=== PATIENT | male | born 1935 | race Caucasian/White ===

== ENCOUNTER 2016-10-04 05:39 | Inpatient (IN) | payer OTHER ==
[2016-10-04] MEDS ORDERED: ACETAMINOPHEN 325 MG TAB PO ONE (06:00)
[2016-10-04] MEDS ORDERED: CHLORHEXIDINE GLUC HIBICLENS 118 ML BTL TP ONE (06:00)
[2016-10-04] MEDS ORDERED: CEFAZOLIN 2 GM/DEXTR 100 ML IV ONE (06:00)
[2016-10-04] MEDS ORDERED: DEXAMETHASONE 4 MG/ML VIAL IVP ONE (06:00)
[2016-10-04] MEDS ORDERED: FAMOTIDINE 20 MG TAB PO ONE (06:00)
[2016-10-04] MEDS ORDERED: ROPI/epiNEPH/KETOROLAC/morphINE JOINT COCKTAIL IU ONE (06:00)
[2016-10-04] MEDS ORDERED: LIDOCAINE 1% 2 ML INJ ONE (06:18)
[2016-10-04] MEDS ORDERED: CALCIUM CHLORIDE 1 GM/10 ML INJ ONE (06:51)
[2016-10-04] MEDS ORDERED: THROMBIN (BOVINE) 5,000 UNIT VIAL TP ONE (06:51)
[2016-10-04] MEDS ORDERED: POLYMYXIN B SULFATE 500,000 UNIT/10 ML SYR IRR ONE (06:52)
[2016-10-04] MEDS ORDERED: BACITRACIN 50,000 UNITS/10 ML SYR IRR ONE (06:52)
[2016-10-04] MEDS ORDERED: PROPOFOL 200 MG/20 ML VIAL ONE ×4 (07:00→09:02)
[2016-10-04] MEDS ORDERED: fentaNYL 100 MCG/2 ML INJ ONE (07:00)
[2016-10-04] MEDS ORDERED: LIDOCAINE 2% 5 ML SDV ONE (07:03)
[2016-10-04] MEDS ORDERED: MIDAZOLAM 2 MG/2 ML VIAL ONE (07:11)
[2016-10-04] MEDS ORDERED: BUPIVACAINE 0.5% 30 ML SDV ONE (07:19)
[2016-10-04] MEDS ORDERED: BUPIVACAINE/EPI 0.5% 30 ML SDV ONE (07:49)
[2016-10-04] MEDS ORDERED: PHARMACY PAIN CONSULT 1 EA MISC PRN (09:26)
[2016-10-04] MEDS ORDERED: DIPHENOXYLATE/ATROPINE LOMOTIL 1 TAB PO PRN (09:26)
[2016-10-04] MEDS ORDERED: ONDANSETRON DISINTEGRATING 4 MG TAB PO PRN (09:26)
[2016-10-04] MEDS ORDERED: TAPENTADOL HCL 50 MG TAB PO PRN (09:26)
[2016-10-04] MEDS ORDERED: oxyCODONE IR 5 MG TAB PO PRN (09:26)
[2016-10-04] MEDS ORDERED: ONDANSETRON 4 MG/2 ML VIAL IVP PRN (09:26)
[2016-10-04] MEDS ORDERED: PROMETHAZINE HCL 25 MG SUPPR PR PRN (09:26)
[2016-10-04] MEDS ORDERED: MAGNESIUM HYDROXIDE 30 ML UDCUP PO PRN (09:26)
[2016-10-04] MEDS ORDERED: BISACODYL 10 MG SUPP PR PRN (09:26)
[2016-10-04] MEDS ORDERED: LACTULOSE 20 GM/30 ML UDCUP PO PRN (09:26)
[2016-10-04] MEDS ORDERED: TEMAZEPAM 15 MG CAP PO PRN (09:26)
[2016-10-04] MEDS ORDERED: diphenhydrAMINE 25 MG CAP PO PRN (09:26)
[2016-10-04] MEDS ORDERED: METOCLOPRAMIDE 10 MG/2 ML VIAL IVP PRN (09:26)
[2016-10-04] MEDS ORDERED: CYCLOBENZAPRINE 10 MG TAB PO PRN (09:26)
[2016-10-04] MEDS ORDERED: POLYETHYLENE GLYCOL 3350 17 GM PKT PO PRN (09:26)
--- NOTE | 2016-10-04 09:29 | POSTOPPROG ---
Post Op Note Date of Operation: 10/04/16 Surgeon: Jacquie Morillo Topstitcher Lockstitch: coltrain Anesthesia: Epidural Pre-op Diagnosis: l knee oa Procedure: l tkr Inf/Abcess present in the surg proc area at time of surgery?: No Depth: Deep Incisional (Fascial) EBL: 50-100
[2016-10-04] MEDS ORDERED: LR 1,000 ML IV SCH (09:30)
[2016-10-04] MEDS ORDERED: TAPENTADOL HCL 50 MG TAB ONE (10:35)
[2016-10-04] MEDS: KETOROLAC 30 MG/1 ML SDV IVP SCH ×3 (12:06→23:51)
[2016-10-04] MEDS: ACETAMINOPHEN 325 MG TAB PO SCH ×3 (12:06→23:52)
[2016-10-04] MEDS: traMADol 50 MG TAB PO SCH ×3 (12:07→23:51)
--- NOTE | 2016-10-04 14:00 | GOP ---
[f rep st] OPERATIVE REPORT DATE OF OPERATION: 10/04/2016 SURGEON: Jacquie Morillo MD DUPLICATOR PUNCH SET UP OPERATOR: HENNY SuárezA, LSA, whose presence was medically necessary. ANESTHESIA: Spinal nerve block. PREOPERATIVE DIAGNOSIS: Left knee osteoarthritis. POSTOPERATIVE DIAGNOSIS: Left knee osteoarthritis. PROCEDURE PERFORMED: Left total knee replacement. FINDINGS: INDICATIONS: This is a 80-year-old male with a long history of left knee pain worsening with use wi th time to the point he has difficulty ambulating and doing activities of daily living. X-ray exam reveals severe osteoarthritic changes. He wishes to have surgery in order to resolve the problem. DESCRIPTION OF PROCEDURE: Patient brought to the operating room after the left side had been identi fied as correct side by the patient, nurse, and physician. Once in the operating room, he was given an epidural nerve block. He then had a tourniquet placed around the upper portion of the left thig h, and the left lower extremity sterilely prepped and draped in usual fashion using GSI solution. O nce prepped and draped, a linear incision was made on the anterior portion of the knee with sharp di ssection carried down through skin, subcutaneous layers identifying the extensor mechanism below. B leeding was controlled using electrocautery. A medial parapatellar incision was made through the ex tensor mechanism with patella brought to side but not everted. He was noted to have abundant amount of osteophytic changes with severe osteoarthritic changes noted of the lateral compartment. The AC L along with the medial and lateral meniscus and the Hoffa pad were removed from the anterior portio n of the knee. Drill hole was made 1 cm anterior to the intercondylar notch with an intramedullary guide placed within the femoral tunnel, and then cutting block was set at 5 degrees valgus and set t o remove 8 mm of bone. Once pinned into place, oscillating saw was used to remove the distal end of the femur until achieving a smooth cut. The knee was brought to maximal flexion. Cartilage was re moved from the posterior portions of the femoral condyles and a sizing guide placed on the cut surfa ce of the distal femur. A sizing guide revealed that a size 7 seemed to fit best without notching t he anterior cortex of the femur. Drill holes were made, and a size 7 four-in-one cutting block was put in place with the anterior, posterior, and chamfer cuts made. A trial femoral component was put into place. The knee was able to achieve full extension suggesting adequate bone had been removed. Once completed, the knee was brought back to maximal flexion. The femoral trial was removed, and the tibia was subluxed anteriorly. An external tibial guide was put into place at neutral varus garyson julissa onto the tibia and a mild amount of posterior slope. It was set to remove 4 mm of bone from the low side of the tibia. Oscillating saw was then used to remove the proximal portion of the tibia. After the drop edu had confirmed the appropriate angle for the cut, it was completed. Trial femora l component, trial tibial component were put into place with the trial polyethylene component noted to fit in place, and the knee was able to achieve full extension. Therefore, all the trials were re moved. The knee brought to maximal flexion. Tibia subluxed anteriorly. Multiple trials were place d on the cut surface of the tibia, and a size 6 tibial component seemed to fit best. It was placed in slight external rotation, pinned into place, and a keel punch passed through the trial into the m edullary cavity. Trials were then removed. The knee brought to full extension. The patella was th en everted. Soft tissue was removed from around the patella. It was noted to be 27 mm in thickness . Oscillating saw was used to remove the posterior portion of the bone leaving 16 mm of bone. Mult iple trials placed on the cut surface. Noted a 38 mm patella button seemed to fit best. Therefore, lug holes were drilled for a 38 mm patella. All cut surfaces of bone were then thoroughly irrigate d with an antibiotic solution with pulsatile lavage while cement was being mixed. Once cement was d oughy, it was placed on the proximal portion of the tibia with a size 6 triathlon X3 tibial componen t put into place and excess cement removed using Arma elevator. The cement was placed on the poste rior skids of the femoral component with cement placed on the distal anterior portion of the femoral component with a size 7 cruciate retaining triathlon component from [place] put into place, and exc ess cement removed using Arma elevator. Trial liner was placed in the tibial tray, and the knee br ought to full extension under pressurized cement. Cement was placed on the cut surface of the robins la, and a 38 mm triathlon X3 patella was put into place and noted to fit securely with excess cement removed using Arma elevator. Once cement had hardened, any excess cement was removed using combin ation of rongeur and osteotome. Multiple trials placed in tibial tray, and a 9 mm insert seemed to fit best. Therefore, a 9 mm polyethylene liner was placed within the tibial tray. Once locked into place, the knee was brought to slight flexion. Tourniquet was deflated at 57 minutes. Bleeding wa s controlled using electrocautery. 0 Vicryl suture was used in a [id number]-[id number] type stitch to dorcas se the extensor mechanism with plasma gel placed intra-articularly. 0 Vicryl and 2-0 Vicryl suture were used to close subcutaneous layers and a 3-0 V-Loc suture in a running subcuticular stitch was u sed to close the skin. The wound was dressed with Steri-Strips, Xeroform, 4 x 4's, and Kerlix. Leg was completely undraped in the operating room, tourniquet removed from the from the thigh, and an A ce wrap placed around the knee. Patient was then transferred onto a stretcher, and sent to recovery room in good condition. TOURNIQUET TIME: 57 minutes. /[id number]/MODL
[2016-10-04] MEDS: ceFAZolin 2 GM/DEXTROSE 100 ML IV SCH ×2 (14:16→21:59)
[2016-10-04] MEDS: SENNOSIDES/DOCUSATE SODIUM TAB PO SCH (20:32)
[2016-10-04] MEDS: LISINOPRIL 20 MG TAB PO SCH (20:32)
[2016-10-04] MEDS: FAMOTIDINE 20 MG TAB PO SCH (20:32)
[2016-10-04] MEDS: DILTIAZEM SR 90 MG CAP PO SCH (20:33)
[2016-10-04] MEDS ORDERED: ATORVASTATIN CALCIUM 40 MG TAB PO SCH (21:00)
[2016-10-05 04:57] LABS: HEMATOCRIT 34.7 % (40.0-51.0); HEMOGLOBIN 12.1 g/dL (13.7-17.5)
[2016-10-05] MEDS: KETOROLAC 30 MG/1 ML SDV IVP SCH ×2 (05:53→11:56)
[2016-10-05] MEDS: ACETAMINOPHEN 325 MG TAB PO SCH ×2 (05:54→11:57)
[2016-10-05] MEDS: traMADol 50 MG TAB PO SCH ×2 (05:54→11:57)
[2016-10-05 07:28] VITALS: RESP 16
[2016-10-05] MEDS: LISINOPRIL 20 MG TAB PO SCH (08:01)
[2016-10-05] MEDS: DILTIAZEM SR 90 MG CAP PO SCH (08:02)
[2016-10-05] MEDS: FAMOTIDINE 20 MG TAB PO SCH (08:02)
[2016-10-05] MEDS: SENNOSIDES/DOCUSATE SODIUM TAB PO SCH (08:02)
[2016-10-05] MEDS ORDERED: ATENOLOL 25 MG TAB PO SCH (09:00)
[2016-10-05] MEDS ORDERED: RIVAROXABAN 10 MG TAB PO SCH (09:00)
[2016-10-05 11:33] VITALS: BP 139/65; PULSE 72; TEMP 98.3; O2SAT 90
--- NOTE | 2016-10-05 11:59 | SOAPPROG ---
SOAP Progress Note Assessment/Plan: Assessment: Plan: ready to d/c home 10/05/16 11:58 Subjective: no issues. 3 Objective: Vital Signs Temp Pulse Resp BP Pulse Ox 36.8 C 72 16 139/65 H 90 L 10/05/16 11:31 10/05/16 11:31 10/05/16 11:31 10/05/16 11:31 10/05/16 11:31 Laboratory Results 10/05/16 04:42 10/04/16 10/05/16 10/06/16 05:59 05:59 05:59 Intake Total 2983 Output Total 1450 Balance 1533 CDI, NVI beverly;f nt - Time Spent With Patient Time Spent With Patient: 5 - Pending Discharge Pending Discharge Within 24 Hours: Yes Pending Discharge Within 48 Hours: No Pending Discharge Date: 10/06/16 Pending Discharge Time: 11:00 ICD10 Worksheet Patient Problems: Problems Problem Status Onset Arthritis of right knee Acute - ICD10 Problem Qualifiers (1) Arthritis of right knee
--- NOTE | 2016-10-05 12:00 | PDIAF ---
- Diagnosis Code Status: Full Code - Medication Management Discharge Medications: Medications to Continue on Transfer Atenolol [Tenormin 25 mg (*)] 25 mg PO DAILY 08/26/16 [Last Taken Unknown] Atorvastatin Calcium [Lipitor 40 mg (*)] 40 mg PO HS 08/26/16 [Last Taken ] Diltiazem Sr [Cardizem Sr] 90 mg PO BID 08/26/16 [Last Taken 10/04/16 04:00] Docusate Sodium [Colace 100 MG (*)] 100 mg PO BID 08/26/16 [Last Taken Unknown] Herbals/Supplements -Info Only 1 ea PO DAILY 08/26/16 [Last Taken 10/03/16] Lisinopril [Zestril 20 mg (*)] 20 mg PO BID 08/26/16 [Last Taken Unknown] Magnesium Oxide [Magnesium Oxide 500 mg] 250 mg PO DAILY 08/26/16 [Last Taken Unknown] Melatonin 5 mg 5 mg PO HS 08/26/16 [Last Taken Unknown] Multivitamins W-Minerals [Thera M Plus Tablet (*)] 1 each PO DAILY 08/26/16 [ Last Taken Unknown] Mv-Min/FA/Vit K/Lycop/Lut/Zeax [Ocuvite Eye + Multi Tablet] 1 each PO DAILY [Last Taken Unknown] Naproxen [Naprosyn] 500 mg PO BID PRN MDD PAIN 08/26/16 [Last Taken 09/27/16] Triamterene/Hctz 37.5/25 [Dyazide 37.5/25 (*)] 1 each PO DAILY 08/26/16 [Last Taken Unknown] diphenhydrAMINE [Benadryl 25 MG (*)] 25 mg PO HS 08/26/16 [Last Taken Unknown] Rivaroxaban [Xarelto 10mg (*)] 10 mg PO DAILY #0 tab 10/05/16 [Last Taken Unknown] oxyCODONE IR [Oxycodone Ir (*)] 5 - 10 mg PO Q3HRS PRN #0 tab 10/05/16 [Last Taken Unknown] traMADol [Ultram 50 mg (*)] 50 mg PO Q6HRS #0 tab 10/05/16 [Last Taken Unknown] Discharge Medications: Refer to the Discharge Home Medication list for PRN reason. - Orders Services needed: Physical Therapy Diet Recommendation: no restrictions on diet Diet Texture: Regular Texture Diet Neal: Not applicable - Follow Up Care Current Providers and Referrals: Brandi Lindquist MD [Primary Care Provider] -
== END 2016-10-05 14:43 | disposition home or self-care (01) | DRG 470 ==
LOC: F3N 05:39
PROVIDERS: ADMIT Orthopaedic Surgery; ATTEND Orthopaedic Surgery
PROC: 0SRD0J9 Replacement of Left Knee Joint with Synthetic Substitute, Cemented, Open Approach (ICD-10-PCS; principal; 2016-10-04 07:15)
DX: M17.12 Unilateral primary osteoarthritis, left knee (principal)
CPT/HCPCS: 97110-GP; 97116-GP; 97161-GP; 97165-GO; 97530-GP; C1713; G8978-GP-CJ; G8979-GP-CI; G8980-GP-CI; G8987-GO-CI; G8988-GO-CI; G8989-GO-CI; J0171; J0690; J1100; J1885; J2250; J2704; J2795; J3010; L1832